=== PATIENT | male | born 1950 | race Caucasian/White ===

== ENCOUNTER 2024-10-31 09:45 | Inpatient (IN) | payer MEDICARE, SELFPAY ==
--- NOTE | ~2024-10-31 | US_ITS ---
CLINICAL HISTORY: LLE swelling erythema Venous duplex ultrasound left lower extremity Comparison: None Findings: The visualized deep veins are fully compressible with normal Doppler color flow and spectral tracings. No popliteal cyst. IMPRESSION: 1. Negative for left lower extremity deep vein thrombosis. This document has been electronically signed by: Audie Knox MD on 10/31/2024 22:24:43
--- NOTE | ~2024-10-31 | XR_ITS ---
EXAMINATION: XR TIBIA FIBULA 2 VIEWS LEFT HISTORY: r/o osteo COMPARISON: There are no prior studies available for comparison. FINDINGS: AP and lateral views of the left tibia and fibula are submitted. Osseous mineralization is normal. There is no fracture or dislocation. The visualized knee and ankle joint spaces are preserved. There is diffuse soft tissue swelling. XR/XR tibia fibula LT 2V IMPRESSION: Diffuse soft tissue swelling. No osseous abnormality is identified. Electronically signed by: Bobby Fontanez MD 10/31/2024 03:53 PM EDT
[2024-10-31 09:58] VITALS: BP 168/82; PULSE 93; RESP 18; TEMP 36.6; O2SAT 96; BMI 52.7
[2024-10-31 11:49] LABS: MANUAL DIFF FLAG NO
[2024-10-31 11:51] LABS: Basophils Percent Auto 0.5 % (0-2); Eosinophils Absolute Auto 0.1 X10*3/uL (0.0-0.4); Eosinophils Percent Auto 1.4 % (0-4); Hematocrit 46.1 % (42.0-52.0); Hemoglobin 15.3 g/dl (14.0-18.0); Imm Gran Abs Auto 0.03 X10*3/uL (0.00-0.03); Imm Gran Pct Auto 0.4 % (0.0-0.4); Lymphocytes Absolute Auto 1.4 X10*3/uL (1.2-4.9); Lymphocytes Percent Auto 18.3 % (20-40); Mean Corpuscular HGB Conc 33.2 g/dl (31.0-36.0); Mean Corpuscular Hemoglobin 29.5 pg (27.0-33.0); Mean Corpuscular Volume 88.8 fL (80.0-98.0); Mean Platelet Volume 9.9 fL (9.4-12.4); Monocytes Absolute Auto 0.6 X10*3/uL (0.1-1.2); Monocytes Percent Auto 8.1 % (2-11); Neutrophils Absolute Auto 5.3 x10*3/uL (2.0-8.3); Neutrophils Percent Auto 71.3 % (45-73); Platelet Count 193 X10*3/uL (160-400); Red Blood Count 5.19 X10*6/uL (4.60-5.80); Red Cell Distribution Width 14.3 % (11.0-16.0); White Blood Count 7.4 X10*3/uL (4.8-10.8)
--- NOTE | 2024-10-31 12:05 | ED.GENADULT ---
HPI - General Adult General Chief complaint: General Medical Stated complaint: l leg swelling red medication not working fell wk Time Seen by Provider: 10/31/24 15:07 Source: patient, RN notes reviewed and old records reviewed Mode of arrival: ambulatory History of Present Illness ED Provider: Merary German PA-C HPI narrative: 74-year-old male with a past medical history prediabetes presenting to the ED complaining of left lower leg erythema, swelling, and wound s/p slip and fall on concrete steps 1 week ago. Denies head trauma/LOC. Admits saw his PCP & was started on Augmentin which he has been taking for 5 days without improvement. Reports increased swelling and weeping noted to leg. Denies fever, chills, SOB Related Data Home Medications ?Medication ?Instructions ?Recorded ?Confirmed clonidine HCl 0.2 mg tablet 0.2 mg PO BID 10/31/24 10/31/24 ezetimibe 10 mg tablet 10 mg PO DAILY 10/31/24 10/31/24 furosemide 40 mg tablet 40 mg PO BID 10/31/24 10/31/24 hydrochlorothiazide 25 mg tablet 25 mg PO DAILY 10/31/24 10/31/24 loratadine 10 mg tablet 10 mg PO DAILY 10/31/24 10/31/24 omega-3 fatty acids-vitamin E 1 cap PO DAILY 10/31/24 10/31/24 1,000 mg capsule omeprazole 20 mg capsule,delayed 20 mg PO DAILY 10/31/24 10/31/24 release potassium chloride 20 mEq 60 meq PO BID 10/31/24 10/31/24 tablet,extended release pravastatin 80 mg tablet 80 mg PO DAILY 10/31/24 10/31/24 psyllium husk 3.4 gram/5.4 gram 1 tsp PO DAILY 10/31/24 10/31/24 oral powder (Metamucil) tamsulosin 0.4 mg capsule 0.8 mg PO DAILY 10/31/24 10/31/24 Allergies Allergy/AdvReac Type Severity Reaction Status Date / Time amlodipine [AMLODIPINE] Allergy Unknown UNKNOWN Verified 10/31/24 10:00 lisinopril [LISINOPRIL] Allergy Unknown UNKNOWN Unverified 03/01/20 15:33 metoprolol [METOPROLOL] Allergy Unknown UNKNOWN Unverified 03/01/20 15:33 spironolactone Allergy Unknown UNKNOWN Unverified 03/01/20 15:33 [SPIRONOLACTONE] Review of Systems Review of Systems: Yes all other systems are reviewed and are negative Constitutional: Constitutional: Reports as per [facility] Past Medical History Attestation statement: The following information was validated with the patient. Source: old records reviewed Medical History (Updated 10/31/24 @ 23:18 by Ryann Balbuena MD) Lower extremity edema Hypertension Mixed hyperlipidemia Obesity BPH (benign prostatic hyperplasia) Gastroesophageal reflux disease Social History Social History Advance Directives: No Advance Directives Information Provided: Yes Physical Exam ED Vital Signs: Vital Signs - 24 hr 10/31/24 09:58 10/31/24 14:53 10/31/24 16:27 Temperature 97.9 F 97.4 F 97.5 F Pulse Rate 93 73 54 Respiratory Rate 18 18 16 Blood Pressure 168/82 H 143/71 H 147/56 H Pulse Oximetry 96 95 97 Oxygen Delivery Method Room Air Room Air Room Air 10/31/24 18:56 10/31/24 20:28 10/31/24 22:28 Temperature 97.8 F 97.2 F Pulse Rate 59 52 57 Respiratory Rate 16 20 18 Blood Pressure 142/63 H 147/46 H 155/59 H Pulse Oximetry 97 97 96 Oxygen Delivery Method Room Air Room Air Room Air BMI result Body Mass Index 52.7 Const General: cooperative, healthy appearing and no acute distress Orientation/consciousness: patient oriented x3 Limitations: no limitations [facility] Head: Yes normal to inspection and Yes atraumatic Ears: hearing grossly normal bilaterally General nose exam: Normal external nose present Face and sinus: Yes normal facial exam Eyes General: appearance normal, both eyes and all related structures EOM: EOMs intact bilaterally Neck Neck: Yes normal visual inspection and Yes no meningeal signs Resp Effort & Inspection: normal respiratory effort and no respiratory distress Cardio Rate: regular rate Skin Rashes: no rashes Neuro General: patient oriented x3, tone normal and no meningeal signs Cranial nerves: Yes CN's II-XII intact bilaterally Gait exam (Neuro): Normal gait present Extrem Other: Please refer to images. Bilateral LE pitting edema. Venous stasis changes noted to RLE LLE is erythema, warmth, and open wound as depicted. + drainage. No fluctuance/induration. Neurovascularly intact distally. No crepitus. Compartments soft Course Course Course Narrative: RME performed by Cassidy Rosen PA-C. Patient is a 74 year old assigned male at presenting to the emergency department with left lower leg redness, swelling, and pain. Patient states he injured his leg on asphalt and was started on ABX 4 days ago but it continues to get worse. Detailed physical exam and review of systems are deferred to the primary teacher. Labs and imaging ordered. Patient placed back in the waiting room pending room availability and results. -1507--no leukocytosis. Labs otherwise reassuring XR tibia fibula LT 2V IMPRESSION: Diffuse soft tissue swelling. No osseous abnormality is identified. -1809--ED care transferred to [facility] pending ultrasound and admission Reevaluation(s) Reevaluation #1: Jocelyn oR NP Venous duplex ultrasound left lower extremity Comparison: None Findings: The visualized deep veins are fully compressible with normal Doppler color flow and spectral tracings. No popliteal cyst. IMPRESSION: 1. Negative for left lower extremity deep vein thrombosis. patient admitted to medicine service, spoke with hospitalist , accepted Medications Administered Generic Name Dose Route Start Last Admin Trade Name Freq PRN Reason Stop Dose Admin Clonidine HCl 0.2 mg 10/31/24 23:15 11/01/24 00:23 Clonidine Hcl 0.2 Mg Tablet PO 0.2 mg BID MARLI Administration Protocol Enoxaparin Sodium 40 mg 10/31/24 22:45 11/01/24 00:21 Enoxaparin Sodium 40 Mg/0.4 Ml Syringe SUBCUT 40 mg Q24H MARLI Administration Furosemide 40 mg 10/31/24 23:15 11/01/24 00:24 Furosemide 40 Mg Tablet PO 40 mg BID MARLI Administration Protocol Sodium Chloride 3 ml 11/01/24 00:00 11/01/24 00:25 0.9 % Sodium Chloride Flush 3 Ml Syringe IVFLUSH 3 ml QSHIFT MARLI Administration Discontinued Medications Generic Name Dose Route Start Last Admin Trade Name Freq PRN Reason Stop Dose Admin Vancomycin HCl 2,000 mg in 500 mls @ 250 mls/hr 10/31/24 15:18 10/31/24 21:28 Vancomycin/Ns IV 10/31/24 17:17 Infused ONCE ONE Infusion Piperacillin Sod/Tazobactam 50 mls @ 100 mls/hr 10/31/24 15:18 10/31/24 16:57 Sod 3.375 gm/ Sodium Chloride IV 10/31/24 15:47 Infused ONCE ONE Infusion Medical Decision Making Medical Decision Making [facility] Narrative: 74-year-old male with a past medical history prediabetes presenting to the ED complaining of left lower leg erythema, swelling, and wound s/p slip and fall on concrete steps 1 week ago. On exam vital signs stable, NAD, nontoxic appearing, physical exam as noted above. Please refer to images. Concern for cellulitis s/p failed outpatient antibiotics vs DVT vs osteomyelitis. Low suspicion for compartment syndrome or severe sepsis at this time Plan: Labs, blood cultures, empiric IV antibiotics, x-ray, ultrasound Please refer to course for remaining clinical decision making, interpretation of labs/imaging results, and discussions with consultants and/or family members. Differential Diagnosis Differential Diagnoses: The differential diagnosis associated with the presentation includes As above Admission/Observation Consideration of admission/observation: Escalation of care including admission/observation considered Consult Healthcare Provider Management of the patient was discussed with: Hospitalist Lab Data [facility] Lab Attestation statement: I reviewed the patient's lab results. 10/31/24 11:33 10/31/24 11:33 Labs: Lab Results 10/31/24 10/31/24 Range/Units 11:33 12:23 WBC 7.4 (4.8-10.8) X10*3/uL RBC 5.19 (4.60-5.80) X10*6/uL Hgb 15.3 (14.0-18.0) g/dl Hct 46.1 (42.0-52.0) % MCV 88.8 (80.0-98.0) fL MCH 29.5 (27.0-33.0) pg MCHC 33.2 (31.0-36.0) g/dl RDW 14.3 (11.0-16.0) % Plt Count 193 (160-400) X10*3/uL MPV 9.9 (9.4-12.4) fL Immature Gran % (Auto) 0.4 (0.0-0.4) % Neut % (Auto) 71.3 (45-73) % Lymph % (Auto) 18.3 L (20-40) % [place] % (Auto) 8.1 (2-11) % Eos % (Auto) 1.4 (0-4) % Baso % (Auto) 0.5 (0-2) % Lymph # (Auto) 1.4 (1.2-4.9) X10*3/uL [place] # (Auto) 0.6 (0.1-1.2) X10*3/uL Eos # (Auto) 0.1 (0.0-0.4) X10*3/uL Baso # (Auto) 0.0 (0.0-0.2) X10*3/uL Abs Immat Gran (auto) 0.03 (0.00-0.03) X10*3/uL Absolute Neuts (auto) 5.3 (2.0-8.3) x10*3/uL Absolute Nucleated RBC 0.000 (0.0-0.012) X10*3/uL Nucleated RBC % (auto) 0.0 (0.0-0.2) /100WBC ESR 13 (0-15) MM/HR Sodium 136 (135-145) mmol/L Potassium 3.7 (3.3-5.1) mmol/L Chloride 99 (96-108) mmol/L Carbon Dioxide 30 H (22-29) mmol/L Anion Gap 11 L (12-20) BUN 12 (9-16) mg/dL Creatinine 0.92 (0.5-1.4) mg/dL Estim Creat Clear Calc 103.3 Estimated GFR > 60 Random Glucose 101 (60-115) mg/dL Lactic Acid 1.2 (0.5-2.0) mmol/L Calcium 9.3 (8.4-10.2) mg/dL Total Bilirubin 0.5 (0.0-1.0) mg/dL AST 20 (5-37) U/L ALT 14 (0-40) U/L Alkaline Phosphatase 89 (39-117) U/L C-Reactive Protein 0.83 H (< or = 0.50) mg/dL B-Natriuretic Peptide 11 (<100) pg/mL Total Protein 6.7 (6.5-8.0) g/dL Albumin 4.0 (3.5-5.0) g/dL Independent Interpretation I performed an independent interpretation of an: Plain X-Ray and Ultrasound Radiology Impression Discussion of test interpretation with radiology: I have reviewed the radiologist's reading. External Record Review External record reviewed: Inpatient record, Office record, Outpatient record, Prior outpatient labs, Prior outpatient radiology, Primary care record and Outside ED record Tests considered The following testing was considered but not selected: As above Prescription Management I considered prescription management with: Pain Medication and Antibiotic Chronic Conditions Patient?s care impacted by: Other Social Determinants Patient?s care significantly limited by Social Determinants of Health including: Other Social Determinant of Health Discharge Plan Discharge Clinical Impression: Cellulitis of left lower leg Patient Disposition: Admitted As Inpatient
[2024-10-31 12:09] LABS: Alanine Aminotransferase 14 U/L (0-40); Alkaline Phosphatase 89 U/L (39-117); Anion Gap 11 (12-20); Aspartate Amino Transferase 20 U/L (5-37); Bilirubin Total 0.5 mg/dL (0.0-1.0); Blood Urea Nitrogen 12 mg/dL (9-16); Calcium 9.3 mg/dL (8.4-10.2); Carbon Dioxide 30 mmol/L (22-29); Chloride 99 mmol/L (96-108); Creatinine Clr Calc Pharmacy 103.3; Estimated Glomerular Filt Rate > 60; Glucose Random 101 mg/dL (60-115); Potassium 3.7 mmol/L (3.3-5.1); Sodium 136 mmol/L (135-145); Total Protein 6.7 g/dL (6.5-8.0)
[2024-10-31 12:12] LABS: B Type Natriuretic Peptide 11 pg/mL (<100)
[2024-10-31 12:39] LABS: C Reactive Protein 0.83 mg/dL (< or = 0.50)
[2024-10-31 12:54] LABS: Lactic Acid 1.2 mmol/L (0.5-2.0)
[2024-10-31 13:12] LABS: Erythrocyte Sedimentation Rate 13 MM/HR (0-15)
[2024-10-31 14:53] VITALS: BP 143/71; PULSE 73; RESP 18; TEMP 36.3; O2SAT 95
--- NOTE | 2024-10-31 16:15 | PC.NURSE ---
20g IV access established to right AC. To be medicated with IV antibiotics and moved from [address] to room 20. IV antibiotics & admission for BLE cellulitis.
[2024-10-31 16:27] VITALS: BP 147/56; PULSE 54; RESP 16; TEMP 36.4; O2SAT 97
[2024-10-31] MEDS: Piperacillin Sodium/Tazobactam 3.375 GM in 0.9 % Sodium Chloride 50 ML IV (16:27)
[2024-10-31] MEDS: vancomycin/NS 2,000 MG/500 ML PLAST..BAG 250 MG IV (17:50)
[2024-10-31 18:56] VITALS: BP 142/63; PULSE 59; RESP 16; TEMP 36.6; O2SAT 97
[2024-10-31 20:28] VITALS: BP 147/46; PULSE 52; RESP 20; TEMP 36.2; O2SAT 97
--- NOTE | 2024-10-31 21:31 | PC.NURSE ---
Medication reconciliation completed with patient & patient provided medication list. Uses [facility] in [facility] [place] Aguilar.
[2024-10-31 22:28] VITALS: BP 155/59; PULSE 57; RESP 18; O2SAT 96
--- NOTE | 2024-10-31 22:35 | PM.IMHP ---
History of Present Illness Date of Service: 10/31/24 Chief Complaint: leg infection This is a 74-year-old male with pertinent history of hypertension, mixed hyperlipidemia, BPH, lower extremity edema, gastroesophageal reflux disease, obesity who presents to the emergency department for concerns of left lower extremity redness and swelling. Patient states that about a week ago he slipped and fell on concrete steps. He has been having nonhealing wound on the left lower extremity since the fall which is associated with progressive redness, swelling and warmth. Patient was seen outpatient by his PCP and started on Augmentin. Patient has been taking p.o. medications for 5 days without any improvement. Also noticed purulent drainage on the day of presentation. No fever, chills, chest pain, palpitations, shortness of breath, abdominal pain, changes in urinary or bowel habits. In the emergency department, patient was given empiric IV antibiotics. Review of Systems Constitutional: Constitutional: Reports no additional constitutional complaints Cardiovascular: Cardiovascular: Reports no additional cardiovascular complaints Respiratory: Respiratory: Reports no additional respiratory complaints Gastrointestinal: Gastrointestinal: Reports no additional gastrointestinal complaints Genitourinary: Genitourinary: Reports no additional male genitourinary complaints [facility] Medical History (Updated 10/31/24 @ 23:18 by Ryann Balbuena MD) Lower extremity edema Hypertension Mixed hyperlipidemia Obesity BPH (benign prostatic hyperplasia) Gastroesophageal reflux disease Pertinent family history: No family history of early CAD Social History Advance Directives: No Advance Directives Information Provided: Yes Meds Allergies Allergy/AdvReac Type Severity Reaction Status Date / Time amlodipine [AMLODIPINE] Allergy Unknown UNKNOWN Verified 10/31/24 10:00 lisinopril [LISINOPRIL] Allergy Unknown UNKNOWN Unverified 03/01/20 15:33 metoprolol [METOPROLOL] Allergy Unknown UNKNOWN Unverified 03/01/20 15:33 spironolactone Allergy Unknown UNKNOWN Unverified 03/01/20 15:33 [SPIRONOLACTONE] Home Medications ?Medication ?Instructions ?Recorded ?Confirmed ?Last Taken ?Type clonidine HCl 0.2 mg tablet 0.2 mg PO BID 10/31/24 10/31/24 10/31/24 History ezetimibe 10 mg tablet 10 mg PO DAILY 10/31/24 10/31/2410/31/25 History furosemide 40 mg tablet 40 mg PO BID 10/31/24 10/31/24 10/30/24 History hydrochlorothiazide 25 mg tablet 25 mg PO DAILY 10/31/24 10/31/24 10/31/24 History loratadine 10 mg tablet 10 mg PO DAILY 10/31/24 10/31/24 10/31/24 History omega-3 fatty acids-vitamin E 1 cap PO DAILY 10/31/24 10/31/24 10/31/24 History 1,000 mg capsule omeprazole 20 mg capsule,delayed 20 mg PO DAILY 10/31/24 10/31/24 10/31/24 History release potassium chloride 20 mEq 60 meq PO BID 10/31/24 10/31/24 10/31/24 History tablet,extended release pravastatin 80 mg tablet 80 mg PO DAILY 10/31/24 10/31/24 10/31/24 History psyllium husk 3.4 gram/5.4 gram 1 tsp PO DAILY 10/31/24 10/31/24 10/31/24 History oral powder (Metamucil) tamsulosin 0.4 mg capsule 0.8 mg PO DAILY 10/31/24 10/31/24 10/30/24 History Physical Exam Vital Signs and Narrative: Vital Signs: Last Vital Signs Temp 97.2 F 10/31/24 20:28 Pulse 57 10/31/24 22:28 Resp 18 10/31/24 22:28 BP 155/59 H 10/31/24 22:28 Pulse Ox 96 10/31/24 22:28 O2 Del Method Room Air 10/31/24 22:28 BMI result Body Mass Index 52.7 Middle-aged male lying in bed in no distress Neck supple, no JVD Regular rate and rhythm, S1-S2 heard Regular breath sounds bilaterally, no wheezing or crackles appreciated Abdomen soft nontender, no guarding, no rigidity Patient is awake, alert and oriented to self, place, time and person ; no focal motor deficit Psych: Normal mood Left lower extremity with erythema, warmth and swelling with nonhealing wounds ; Bilateral lower extremity pedal edema Results Labs 10/31/24 11:33 10/31/24 11:33 Labs: Laboratory Results - last 24 hr 10/31/24 10/31/24 11:33 12:23 MCV 88.8 MCH 29.5 MCHC 33.2 RDW 14.3 Plt Count 193 MPV 9.9 Immature Gran % (Auto) 0.4 Neut % (Auto) 71.3 Lymph % (Auto) 18.3 L [place] % (Auto) 8.1 Eos % (Auto) 1.4 Baso % (Auto) 0.5 Lymph # (Auto) 1.4 [place] # (Auto) 0.6 Eos # (Auto) 0.1 Baso # (Auto) 0.0 Abs Immat Gran (auto) 0.03 Absolute Neuts (auto) 5.3 Absolute Nucleated RBC 0.000 Nucleated RBC % (auto) 0.0 ESR 13 Anion Gap 11 L Estim Creat Clear Calc 103.3 Estimated GFR > 60 Random Glucose 101 Lactic Acid 1.2 Calcium 9.3 Total Bilirubin 0.5 AST 20 ALT 14 Alkaline Phosphatase 89 C-Reactive Protein 0.83 H B-Natriuretic Peptide 11 Total Protein 6.7 Albumin 4.0 Imaging Radiologist's Impressions: Impressions Tibia/Fibula X-Ray 10/31/24 15:18 IMPRESSION: Diffuse soft tissue swelling. No osseous abnormality is identified. Electronically signed by: Bobby Fontanez MD 10/31/2024 03:53 PM EDT RP Assessment and Plan (1) Cellulitis of left lower leg: Status: Acute Plan This is a 74-year-old male with pertinent history of hypertension, mixed hyperlipidemia, BPH, lower extremity edema, gastroesophageal reflux disease, obesity who presents to the emergency department for concerns of left lower extremity redness and swelling. #. Left lower extremity purulent cellulitis: Will admit patient with IV vancomycin. No sepsis. Monitor for improvement. Failed outpatient p.o. antibiotics. Wound care consult. #. Hypertension: Continue home clonidine, hydrochlorothiazide, furosemide #. Mixed hyperlipidemia: On Zetia and statin #. Lower extremity edema: On diuretics #. BPH: On Flomax #. Gastroesophageal reflux disease: On PPI DVT prophylaxis: Lovenox Full code Admit as inpatient and will require two night minimum hospital stay for IV antibiotics (as above), which is not possible in a lesser acute setting. Quality Stroke Does the patient have a stroke diagnosis?: No VTE Prior VTE?: No VTE Risk Level:: Medical - moderate - high VTE Device Contraindication: Treatment Not Indicated VTE Drug Contraindication: N/A - Med Ordered
[2024-11-01] MEDS: Enoxaparin Sodium 40 MG/0.4 ML SYRINGE SUBCUT ×2 (00:21→21:06)
[2024-11-01 00:23] VITALS: BP 155/59
[2024-11-01] MEDS: cloNIDine HCL 0.2 MG TABLET PO ×3 (00:23→21:00)
[2024-11-01 00:24] VITALS: BP 155/59
[2024-11-01] MEDS: Furosemide 40 MG TABLET PO ×3 (00:24→21:00)
[2024-11-01] MEDS: 0.9 % Sodium Chloride Flush 3 ML SYRINGE IVFLUSH ×4 (00:25→23:26)
--- NOTE | 2024-11-01 04:39 | PC.NURSE ---
Pt is intermittently resting/sleeping in bed. Uses the call light for assistance/needs. Is appropriate with staff and staff requests. Ambulates with a steady unassisted and uses the bathroom as desired. Pending admission for IV antibiotics. Will continue to monitor for any changes in condition.
[2024-11-01 05:50] VITALS: BP 140/52; PULSE 57; RESP 18; TEMP 36.6; O2SAT 95
[2024-11-01 06:03] LABS: MANUAL DIFF FLAG NO
--- NOTE | 2024-11-01 06:08 | PC.NURSE ---
Pt transferred to a hospital bed for additional comfort. Pt denies any other needs/wants at this time.
[2024-11-01 06:16] LABS: Anion Gap 11 (12-20); Blood Urea Nitrogen 11 mg/dL (9-16); Calcium 8.6 mg/dL (8.4-10.2); Carbon Dioxide 29 mmol/L (22-29); Chloride 100 mmol/L (96-108); Creatinine Clr Calc Pharmacy 109.3; Estimated Glomerular Filt Rate > 60; Glucose Random 113 mg/dL (60-115); Potassium 3.4 mmol/L (3.3-5.1); Sodium 137 mmol/L (135-145)
[2024-11-01 06:39] LABS: Basophils Absolute Auto 0.1 X10*3/uL (0.0-0.2); Basophils Percent Auto 0.8 % (0-2); Eosinophils Absolute Auto 0.2 X10*3/uL (0.0-0.4); Eosinophils Percent Auto 2.5 % (0-4); Hematocrit 42.9 % (42.0-52.0); Hemoglobin 14.3 g/dl (14.0-18.0); Imm Gran Abs Auto 0.02 X10*3/uL (0.00-0.03); Imm Gran Pct Auto 0.3 % (0.0-0.4); Lymphocytes Absolute Auto 1.3 X10*3/uL (1.2-4.9); Mean Corpuscular HGB Conc 33.3 g/dl (31.0-36.0); Mean Corpuscular Hemoglobin 29.7 pg (27.0-33.0); Mean Corpuscular Volume 89.2 fL (80.0-98.0); Mean Platelet Volume 9.8 fL (9.4-12.4); Monocytes Absolute Auto 0.5 X10*3/uL (0.1-1.2); Monocytes Percent Auto 7.8 % (2-11); Neutrophils Absolute Auto 4.2 x10*3/uL (2.0-8.3); Neutrophils Percent Auto 67.6 % (45-73); Platelet Count 197 X10*3/uL (160-400); Red Blood Count 4.81 X10*6/uL (4.60-5.80); Red Cell Distribution Width 14.5 % (11.0-16.0); White Blood Count 6.3 X10*3/uL (4.8-10.8)
[2024-11-01 07:32] VITALS: BP 136/56; PULSE 54; RESP 20; TEMP 36.4; O2SAT 96
[2024-11-01] MEDS: vancomycin HCL 1,250 MG in 0.9 % Sodium Chloride 250 ML 166.67 MG IV ×2 (08:02→18:38)
[2024-11-01] MEDS: Loratadine 10 MG TABLET PO (08:05)
[2024-11-01] MEDS: Omeprazole 20 MG CAPSULE.DR PO (08:05)
[2024-11-01] MEDS: Ezetimibe 10 MG TABLET PO (08:06)
[2024-11-01] MEDS: Tamsulosin HCL 0.4 MG CAPSULE 0.8 MG PO (08:06)
[2024-11-01] MEDS: hydroCHLOROthiazide 25 MG TABLET PO (08:06)
[2024-11-01] MEDS: Potassium Chloride ER 20 MEQ TAB.ER.PRT 60 MEQ PO ×2 (08:13→21:00)
[2024-11-01] MEDS: Pravastatin Sodium 80 MG TABLET PO (08:21)
--- NOTE | 2024-11-01 08:44 | PHA.MEDREC ---
Addendum entered by Soledad Nicole RPh 11/01/24 11:02: Med rec was reviewed by [facility]. Original Note: Pharmacy Consult ? Medication Reconciliation Pharmacy reviewed med rec done by nursing. Patient verified the medications and I updated that the patient stated he is taking the Metamucil 1 tsp at bedtime;nurse had confirmed 1 tsp po daily. Also the patient confirmed he takes his Tamsulosin 0.4mg tab 2 tab at bedtime; nurse had confirmed 0.8mg tabs daily.
[2024-11-01 09:31] VITALS: BMI 52.8
--- NOTE | 2024-11-01 09:32 | P.PNIM_ITS ---
Subjective Subjective Date of Service: 11/01/24 Interval History: seen and evaluated this morning denies fever or chills LLE swollen, erythema stable no expansion no other events Review of Systems Review of Systems: Yes all other systems are reviewed and are negative Physical Exam 2 Vital Signs: Vital Signs: Last Vital Signs Temp 97.6 F 11/01/24 07:32 Pulse 54 11/01/24 07:32 Resp 20 11/01/24 07:32 BP 136/56 L 11/01/24 07:32 Pulse Ox 96 11/01/24 07:32 O2 Del Method Room Air 11/01/24 07:32 BMI result Body Mass Index 52.7 Const: Other: Constitutional : Awake, interactive, not in distress Neck : Normal inspection, Supple Cardiovascular : RRR, no JVP, +2 lower extremity edema Respiratory : good bilateral air entry, no crackles, wheezes or rhonchi Gastrointestinal: soft, lax, Normal bowel sounds, Non tender Skin : Warm, Dry, Bilateral LE pitting edema. Venous stasis changes noted bilaterally, LLE has erythema, warmth, and mild tenderness with 2 open wound covered with . No fluctuance/induration. Neurovascularly intact distally. No crepitus. Compartments soft Neurological : Alert & oriented x3, No focal deficit , CN 2-12 within normal Objective Data Active Medications Acetaminophen (Acetaminophen 325 Mg Tablet) 650 mg PO Q6H PRN PRN Reason: Pain, Mild 1-3,fever,headache Calcium Carbonate (Calcium Carbonate 750 Mg Tab.Chew) 750 mg PO Q4H PRN PRN Reason: Heartburn Clonidine HCl (Clonidine Hcl 0.2 Mg Tablet) 0.2 mg PO BID [facility]; Protocol Last Admin: 11/01/24 08:05 Dose: 0.2 mg Documented By: WERO Ezetimibe (Ezetimibe 10 Mg Tablet) 10 mg PO DAILY [facility] Last Admin: 11/01/24 08:06 Dose: 10 mg Documented By: WERO Enoxaparin Sodium (Enoxaparin Sodium 40 Mg/0.4 Ml Syringe) 40 mg SUBCUT Q24H [facility] Last Admin: 11/01/24 00:21 Dose: 40 mg Documented By: ESTELLE Furosemide (Furosemide 40 Mg Tablet) 40 mg PO BID [facility]; Protocol Last Admin: 11/01/24 08:05 Dose: 40 mg Documented By: WERO Hydrochlorothiazide (Hydrochlorothiazide 25 Mg Tablet) 25 mg PO DAILY [facility]; Protocol Last Admin: 11/01/24 08:06 Dose: 25 mg Documented By: WERO Vancomycin HCl 1,250 mg/ (Sodium Chloride) 250 mls @ 166.667 mls/hr IV Q12H [facility] Last Admin: 11/01/24 08:02 Dose: 166.67 mls/hr Documented By: WERO Loratadine (Loratadine 10 Mg Tablet) 10 mg PO DAILY [facility] Last Admin: 11/01/24 08:05 Dose: 10 mg Documented By: WERO Magnesium Hydroxide (Milk Of Magnesia 30 Ml Oral.Susp) 30 ml PO DAILY PRN PRN Reason: Constipation Melatonin (Melatonin 3 Mg Tablet) 6 mg PO BEDTIME PRN PRN Reason: Insomnia Omeprazole (Omeprazole 20 Mg Capsule.Dr) 20 mg PO DAILY [facility] Last Admin: 11/01/24 08:05 Dose: 20 mg Documented By: WERO Ondansetron HCl (Ondansetron Hcl 4 Mg/2 Ml Vial) 4 mg IVPUSH Q8H PRN PRN Reason: Nausea and Vomiting Pharmacy Consult (Consult Rx Vancomycin Dosing) 1 each MISCELLANE DAILY PRN PRN Reason: Consult order Potassium Chloride (Potassium Chloride Er 20 Meq Tab.Er.Prt) 60 meq PO BID [facility] Last Admin: 11/01/24 08:13 Dose: 60 meq Documented By: WERO Pravastatin Sodium (Pravastatin Sodium 80 Mg Tablet) 80 mg PO DAILY [facility] Last Admin: 11/01/24 08:21 Dose: 80 mg Documented By: WERO Psyllium Hydrophilic Mucilloid (Psyllium Seed 3.7 Gm Packet) 3.7 gm PO DAILY [facility] Sodium Chloride (0.9 % Sodium Chloride Flush 3 Ml Syringe) 3 ml IVFLUSH QSHIFT [facility] Last Admin: 11/01/24 08:09 Dose: 3 ml Documented By: WERO Tamsulosin HCl (Tamsulosin Hcl 0.4 Mg Capsule) 0.8 mg PO DAILY [facility] Last Admin: 11/01/24 08:06 Dose: 0.8 mg Documented By: WERO Labs 11/01/24 06:00 11/01/24 06:00 Labs: Laboratory Results - last 24 hr 10/31/24 10/31/24 11/01/24 11:33 12:23 06:00 MCV 88.8 89.2 MCH 29.5 29.7 MCHC 33.2 33.3 RDW 14.3 14.5 Plt Count 193 197 MPV 9.9 9.8 Immature Gran % (Auto) 0.4 0.3 Neut % (Auto) 71.3 67.6 Lymph % (Auto) 18.3 L 21.0 [place] % (Auto) 8.1 7.8 Eos % (Auto) 1.4 2.5 Baso % (Auto) 0.5 0.8 Lymph # (Auto) 1.4 1.3 [place] # (Auto) 0.6 0.5 Eos # (Auto) 0.1 0.2 Baso # (Auto) 0.0 0.1 Abs Immat Gran (auto) 0.03 0.02 Absolute Neuts (auto) 5.3 4.2 Absolute Nucleated RBC 0.000 0.000 Nucleated RBC % (auto) 0.0 0.0 ESR 13 Anion Gap 11 L 11 L Estim Creat Clear Calc 103.3 109.3 Estimated GFR > 60 > 60 Random Glucose 101 113 Lactic Acid 1.2 Calcium 9.3 8.6 D Total Bilirubin 0.5 AST 20 ALT 14 Alkaline Phosphatase 89 C-Reactive Protein 0.83 H B-Natriuretic Peptide 11 Total Protein 6.7 Albumin 4.0 Assessment and Plan (1) Lower extremity edema: Status: Acute (2) Cellulitis of left lower leg: Status: Acute Plan This is a 74-year-old male with pertinent history of hypertension, mixed hyperlipidemia, BPH, lower extremity edema, gastroesophageal reflux disease, obesity who presents to the emergency department for concerns of left lower extremity redness and swelling. # Left lower extremity purulent cellulitis Failed OP antibiotics pending cultures Continue IV vancomycin Monitor for improvement Failed outpatient p.o. antibiotics Wound care consult RANJITH Wrap Apply Steroid cream for stasis dermatitis follow Vancomycin trough # Hypertension Continue home clonidine, hydrochlorothiazide, furosemide # Mixed hyperlipidemia On Zetia and statin # Lower extremity edema On diuretics, RANJITH Wrap # BPH On Flomax # Gastroesophageal reflux disease: On PPI DVT prophylaxis: Lovenox Full code Admit as inpatient and will require overnight minimum hospital stay for IV antibiotics (as above), which is not possible in a lesser acute setting. Quality Stroke Does the patient have a stroke diagnosis?: No VTE Prior VTE?: No VTE Risk Level:: Medical - moderate - high VTE Device Contraindication: Treatment Not Indicated VTE Drug Contraindication: N/A - Med Ordered
[2024-11-01] MEDS: Hydrocortisone 1 % Cream 28.35 GM TUBE 1 APPL TOPICAL (11:05)
--- NOTE | 2024-11-01 12:37 | MHC.CM.PN ---
PT LIVES ALONE HE IS INDEPENDENT HIS CAR IS IN THE PARKING LOT DC PLAN HOME NO SERVICES
[2024-11-01 14:43] VITALS: BP 122/39; PULSE 65; RESP 18; TEMP 36.7; O2SAT 95
--- NOTE | 2024-11-01 15:28 | P.CDIM_ITS ---
PROVIDER RESPONSE TEXT: To clarify, the appropriate diagnosis supported by the clinical indicators: Severe or Morbid Obesity QUERY TEXT: PHYSICIAN'S DOCUMENTATION REQUEST Date of Query: 11/01/2024 11:04 AM EDT Patient Name: Prashant Aden Admit Date: 11/01/2024 Dear Harley Gonzales MD, A review of the medical record indicates additional documentation may be needed. Please review below and update the documentation accordingly. Clinical Indicators: Height: 5ft 7in Weight: 152.6 kg BMI: 52.8 Other Clinical Notes Supporting Significance of the BMI: Nursing notes Height and Weight: Extreme obe sity class III If possible, please provide an associated diagnosis related to the abnormal BMI, such as: Severe or Morbid Obesity Obesity Other specified Other (explain) Clinically unable to determine (explain) Thank you, Radha Porter, CCS, CDIS Use of terms such as suspected, likely, concern for, or probable (associated with a specific diagnosi s that is being evaluated, monitored, or treated as if it exists) are acceptable and can be coded in the inpatient se tting, when documented at the time of discharge. Please use your independent medical judgment in providing your response. THIS QUERY IS PART OF THE PERMANENT MEDICAL RECORD
[2024-11-01 20:00] VITALS: BP 138/68; PULSE 73; RESP 20; TEMP 36.6; O2SAT 95
[2024-11-02 03:05] VITALS: BP 133/65; PULSE 56; RESP 18; TEMP 37.1; O2SAT 95
[2024-11-02] MEDS: vancomycin HCL 1,250 MG in 0.9 % Sodium Chloride 250 ML 166.67 MG IV ×2 (06:15→18:31)
[2024-11-02 06:39] LABS: MANUAL DIFF FLAG NO
[2024-11-02 07:01] LABS: Anion Gap 14 (12-20); Blood Urea Nitrogen 13 mg/dL (9-16); Calcium 9.4 mg/dL (8.4-10.2); Carbon Dioxide 29 mmol/L (22-29); Chloride 99 mmol/L (96-108); Creatinine Clr Calc Pharmacy 100.2; Estimated Glomerular Filt Rate > 60; Glucose Random 103 mg/dL (60-115); Potassium 3.6 mmol/L (3.3-5.1); Sodium 138 mmol/L (135-145)
[2024-11-02 07:30] LABS: Basophils Percent Auto 0.6 % (0-2); Eosinophils Absolute Auto 0.2 X10*3/uL (0.0-0.4); Eosinophils Percent Auto 2.9 % (0-4); Hematocrit 45.8 % (42.0-52.0); Imm Gran Abs Auto 0.03 X10*3/uL (0.00-0.03); Imm Gran Pct Auto 0.5 % (0.0-0.4); Lymphocytes Absolute Auto 1.9 X10*3/uL (1.2-4.9); Lymphocytes Percent Auto 28.6 % (20-40); Mean Corpuscular HGB Conc 32.8 g/dl (31.0-36.0); Mean Corpuscular Hemoglobin 29.4 pg (27.0-33.0); Mean Corpuscular Volume 89.8 fL (80.0-98.0); Monocytes Absolute Auto 0.6 X10*3/uL (0.1-1.2); Monocytes Percent Auto 8.7 % (2-11); Neutrophils Absolute Auto 3.8 x10*3/uL (2.0-8.3); Neutrophils Percent Auto 58.7 % (45-73); Platelet Count 201 X10*3/uL (160-400); Red Cell Distribution Width 14.6 % (11.0-16.0); White Blood Count 6.5 X10*3/uL (4.8-10.8)
[2024-11-02 07:48] VITALS: PULSE 54; RESP 16; TEMP 36.7; O2SAT 95
[2024-11-02] MEDS: Ezetimibe 10 MG TABLET PO (08:12)
[2024-11-02] MEDS: hydroCHLOROthiazide 25 MG TABLET PO (08:12)
[2024-11-02] MEDS: Omeprazole 20 MG CAPSULE.DR PO (08:12)
[2024-11-02] MEDS: Furosemide 40 MG TABLET PO ×2 (08:12→19:50)
[2024-11-02] MEDS: Tamsulosin HCL 0.4 MG CAPSULE 0.8 MG PO (08:13)
[2024-11-02] MEDS: Potassium Chloride ER 20 MEQ TAB.ER.PRT 60 MEQ PO ×2 (08:13→19:50)
[2024-11-02] MEDS: cloNIDine HCL 0.2 MG TABLET PO ×2 (08:13→19:50)
[2024-11-02] MEDS: Loratadine 10 MG TABLET PO (08:13)
[2024-11-02] MEDS: Hydrocortisone 1 % Cream 28.35 GM TUBE 1 APPL TOPICAL ×2 (08:14→19:51)
[2024-11-02] MEDS: Psyllium seed 3.7 GM PACKET PO (08:14)
[2024-11-02] MEDS: Pravastatin Sodium 80 MG TABLET PO (08:27)
--- NOTE | 2024-11-02 11:07 | P.PNIM_ITS ---
Subjective Subjective Date of Service: 11/02/24 Interval History: seen and evaluated this morning denies fever or chills LLE swollen, erythema stable no expansion no other events Review of Systems Review of Systems: Yes all other systems are reviewed and are negative Physical Exam 2 Vital Signs: Vital Signs: Last Vital Signs Temp 98.1 F 11/02/24 07:48 Pulse 54 11/02/24 07:48 Resp 16 11/02/24 07:48 BP 133/65 11/02/24 03:05 Pulse Ox 95 11/02/24 07:48 O2 Del Method Room Air 11/02/24 07:48 BMI result Body Mass Index 52.8 Const: Other: Constitutional : Awake, interactive, not in distress Neck : Normal inspection, Supple Cardiovascular : RRR, no JVP, +2 lower extremity edema Respiratory : good bilateral air entry, no crackles, wheezes or rhonchi Gastrointestinal: soft, lax, Normal bowel sounds, Non tender Skin : Warm, Dry, Bilateral LE pitting edema. Venous stasis changes noted bilaterally, LLE has erythema, warmth, and mild tenderness with 2 open wound covered with . No fluctuance/induration. Neurovascularly intact distally. No crepitus. Compartments soft Neurological : Alert & oriented x3, No focal deficit , CN 2-12 within normal Objective Data Active Medications Acetaminophen (Acetaminophen 325 Mg Tablet) 650 mg PO Q6H PRN PRN Reason: Pain, Mild 1-3,fever,headache Calcium Carbonate (Calcium Carbonate 750 Mg Tab.Chew) 750 mg PO Q4H PRN PRN Reason: Heartburn Clonidine HCl (Clonidine Hcl 0.2 Mg Tablet) 0.2 mg PO BID [facility]; Protocol Last Admin: 11/02/24 08:13 Dose: 0.2 mg Documented By: ANA Ezetimibe (Ezetimibe 10 Mg Tablet) 10 mg PO DAILY [facility] Last Admin: 11/02/24 08:12 Dose: 10 mg Documented By: ANA Enoxaparin Sodium (Enoxaparin Sodium 40 Mg/0.4 Ml Syringe) 40 mg SUBCUT Q24H [facility] Last Admin: 11/01/24 21:06 Dose: 40 mg Documented By: MARTÍN Furosemide (Furosemide 40 Mg Tablet) 40 mg PO BID [facility]; Protocol Last Admin: 11/02/24 08:12 Dose: 40 mg Documented By: ANA Hydrochlorothiazide (Hydrochlorothiazide 25 Mg Tablet) 25 mg PO DAILY [facility]; Protocol Last Admin: 11/02/24 08:12 Dose: 25 mg Documented By: ANA Hydrocortisone (Hydrocortisone 1 % Cream 28.35 Gm Tube) 1 appl TOPICAL BID [facility]; Protocol Last Admin: 11/02/24 08:14 Dose: 1 appl Documented By: ANA Vancomycin HCl 1,250 mg/ (Sodium Chloride) 250 mls @ 166.667 mls/hr IV Q12H [facility] Last Infusion: 11/02/24 08:23 Dose: Infused Documented By: ANA Loratadine (Loratadine 10 Mg Tablet) 10 mg PO DAILY [facility] Last Admin: 11/02/24 08:13 Dose: 10 mg Documented By: ANA Magnesium Hydroxide (Milk Of Magnesia 30 Ml Oral.Susp) 30 ml PO DAILY PRN PRN Reason: Constipation Melatonin (Melatonin 3 Mg Tablet) 6 mg PO BEDTIME PRN PRN Reason: Insomnia Omeprazole (Omeprazole 20 Mg Capsule.Dr) 20 mg PO DAILY [facility] Last Admin: 11/02/24 08:12 Dose: 20 mg Documented By: ANA Ondansetron HCl (Ondansetron Hcl 4 Mg/2 Ml Vial) 4 mg IVPUSH Q8H PRN PRN Reason: Nausea and Vomiting Pharmacy Consult (Consult Rx Vancomycin Dosing) 1 each MISCELLANE DAILY PRN PRN Reason: Consult order Potassium Chloride (Potassium Chloride Er 20 Meq Tab.Er.Prt) 60 meq PO BID [facility] Last Admin: 11/02/24 08:13 Dose: 60 meq Documented By: ANA Pravastatin Sodium (Pravastatin Sodium 80 Mg Tablet) 80 mg PO DAILY [facility] Last Admin: 11/02/24 08:27 Dose: 80 mg Documented By: ANA Psyllium Hydrophilic Mucilloid (Psyllium Seed 3.7 Gm Packet) 3.7 gm PO DAILY [facility] Last Admin: 11/02/24 08:14 Dose: 3.7 gm Documented By: ANA Sodium Chloride (0.9 % Sodium Chloride Flush 3 Ml Syringe) 3 ml IVFLUSH QSHIFT [facility] Last Admin: 11/02/24 08:19 Dose: Not Given Documented By: ANA Non-Admin Reason: IV Running Tamsulosin HCl (Tamsulosin Hcl 0.4 Mg Capsule) 0.8 mg PO DAILY [facility] Last Admin: 11/02/24 08:13 Dose: 0.8 mg Documented By: ANA Labs 11/02/24 05:31 11/02/24 05:31 Labs: Laboratory Results - last 24 hr 11/02/24 05:31 MCV 89.8 MCH 29.4 MCHC 32.8 RDW 14.6 Plt Count 201 MPV 10.0 Immature Gran % (Auto) 0.5 H Neut % (Auto) 58.7 Lymph % (Auto) 28.6 [place] % (Auto) 8.7 Eos % (Auto) 2.9 Baso % (Auto) 0.6 Lymph # (Auto) 1.9 [place] # (Auto) 0.6 Eos # (Auto) 0.2 Baso # (Auto) 0.0 Abs Immat Gran (auto) 0.03 Absolute Neuts (auto) 3.8 Absolute Nucleated RBC 0.000 Nucleated RBC % (auto) 0.0 Anion Gap 14 Estim Creat Clear Calc 100.2 Estimated GFR > 60 Random Glucose 103 Calcium 9.4 D Microbiology Microbiology Results: Microbiology 10/31/24 12:23 Blood Culture - Preliminary Blood - Venous No growth after 24 hours. 10/31/24 12:23 Blood Culture - Preliminary Blood - Venous No growth after 24 hours. Assessment and Plan (1) Lower extremity edema: Status: Acute (2) Cellulitis of left lower leg: Status: Acute Plan 74M PMH hypertension, mixed hyperlipidemia, BPH, lower extremity edema, gastroesophageal reflux disease, obesity who presented to the emergency department for concerns of left lower extremity redness and swelling. Left lower extremity purulent cellulitis Failed OP antibiotics pending cultures Continue IV vancomycin Monitor for improvement Failed outpatient p.o. antibiotics Wound care consult RANJITH Wrap Apply Steroid cream for stasis dermatitis follow Vancomycin trough Hypertension Continue home clonidine, hydrochlorothiazide, furosemide Mixed hyperlipidemia On Zetia and statin Lower extremity edema On diuretics, RANJITH Wrap BPH On Flomax Gastroesophageal reflux disease PPI DVT prophylaxis: Lovenox Full code reason for continued hospitalization:iv abx Quality Stroke Does the patient have a stroke diagnosis?: No VTE Prior VTE?: No VTE Risk Level:: Medical - moderate - high VTE Device Contraindication: Treatment Not Indicated VTE Drug Contraindication: N/A - Med Ordered
[2024-11-02 15:03] VITALS: BP 142/71; PULSE 61; RESP 18; TEMP 36.6; O2SAT 96
--- NOTE | 2024-11-02 15:37 | MHC.CM.PN ---
per rounds possible dc today on oral meds plan remains home
[2024-11-02] MEDS: 0.9 % Sodium Chloride Flush 3 ML SYRINGE IVFLUSH ×2 (16:14→23:57)
--- NOTE | 2024-11-02 16:14 | HO.WOUND ---
Wound Consult: Initial 74yr old? admitted to [facility] on 10/31/24 - See progress notes and H&P for detailed history.? Wound consult placed for Left Lower Leg wound.? Patient agreeable to assessment and photo documentation.? Patient reports innjury a few weeks ago with poor healing. Patient agreeable to wound care follow up outpt for healing. Left Lower Leg Etiology: ?Abrasion Measurements: 12cm x 4cm x 0.1cm Wound Bed: dry stable intact black scab vs eschar Drainage / Odor: None Edges: ? irregular and stable dry [place] wound: red pink tissue - swelling noted no moisture noted ? No Induration, Fluctuance or Warmth noted Pain: pain to wound area with ambulation Goals of Treatment: Keep stable and dry and follow up outpt wound clinic. Right Lower Leg - Abrasions stable scabs noted - painted with betadine no other dressing needed at this time. ? Recommendations: 1. Turn and Reposition every 2 hours and as needed for patient comfort.? Use pillows or wedges to support off loading positions. 2. Off Load all bony prominences with use of pillows and heel boots if needed.? Apply Preventative foams where needed. ? 3. Monitor for incontinence and moisture control, use barrier creams when needed for prevention and treatment. 4. Provide adequate and supplemental nutrition.? 5. When applicable maintain blood glucose levels per Providers order. Left Leg - Elevate on pillows. [place] with Betadine apply single layer xeroform cover with dry gauze, wrap and Jerrell wrap. Change every 2-3 days. Recommend follow up out patient Wound Clinic at [address] [place] [id number] and to call for an appointment at time of discharge. [phone].? Re-consult wound care Nurse for wound deterioration or wound changes.
[2024-11-02 17:16] LABS: Vancomycin Random 15.2 mcg/mL (15-20)
[2024-11-02 19:21] VITALS: BP 160/56; PULSE 67; RESP 20; TEMP 36.6; O2SAT 93
[2024-11-02] MEDS: Enoxaparin Sodium 40 MG/0.4 ML SYRINGE SUBCUT (21:59)
[2024-11-03 03:02] VITALS: BP 148/66; PULSE 57; RESP 18; TEMP 36.6; O2SAT 94
[2024-11-03] MEDS: vancomycin HCL 1,250 MG in 0.9 % Sodium Chloride 250 ML 166.67 MG IV (06:22)
[2024-11-03 06:24] LABS: Hematocrit 41.6 % (42.0-52.0); Hemoglobin 13.7 g/dl (14.0-18.0); Mean Corpuscular HGB Conc 32.9 g/dl (31.0-36.0); Mean Corpuscular Hemoglobin 29.3 pg (27.0-33.0); Mean Corpuscular Volume 89.1 fL (80.0-98.0); Mean Platelet Volume 9.8 fL (9.4-12.4); Platelet Count 176 X10*3/uL (160-400); Red Blood Count 4.67 X10*6/uL (4.60-5.80); Red Cell Distribution Width 14.5 % (11.0-16.0); White Blood Count 6.5 X10*3/uL (4.8-10.8)
[2024-11-03 06:41] LABS: Anion Gap 13 (12-20); Blood Urea Nitrogen 12 mg/dL (9-16); Calcium 8.8 mg/dL (8.4-10.2); Carbon Dioxide 29 mmol/L (22-29); Chloride 100 mmol/L (96-108); Creatinine Clr Calc Pharmacy 99.2; Estimated Glomerular Filt Rate > 60; Glucose Random 105 mg/dL (60-115); Potassium 3.7 mmol/L (3.3-5.1); Sodium 138 mmol/L (135-145)
[2024-11-03 07:01] VITALS: BP 147/66; PULSE 52; RESP 14; TEMP 36.6; O2SAT 93
[2024-11-03] MEDS: Pravastatin Sodium 80 MG TABLET PO (08:30)
--- NOTE | 2024-11-03 08:51 | P.DS_ITS ---
DS: Providers Provider Date of Service: 11/03/24 Date of admission: 10/31/24 22:34 Date of discharge: 11/03/24 Primary care physician: Jovanny Oates MD Consults: 11/01/24 09:44 Consult to Wound Care Routine Reason for consultation: left lower leg wound DS: Diagnosis Discharge Diagnosis (1) Lower extremity edema: Status: Acute (2) Cellulitis of left lower leg: Status: Acute DS: Summary Hospital Course Hospital Course: from initial hpi: 74-year-old male with pertinent history of hypertension, mixed hyperlipidemia, BPH, lower extremity edema, gastroesophageal reflux disease, obesity who presents to the emergency department for concerns of left lower extremity redness and swelling. Patient states that about a week ago he slipped and fell on concrete steps. He has been having nonhealing wound on the left lower extremity since the fall which is associated with progressive redness, swelling and warmth. Patient was seen outpatient by his PCP and started on Augmentin. Patient has been taking p.o. medications for 5 days without any improvement. Also noticed purulent drainage on the day of presentation. No fever, chills, chest pain, palpitations, shortness of breath, abdominal pain, changes in urinary or bowel habits. In the emergency department, patient was given empiric IV antibiotics. hospital course: Patient was admitted for left lower extremity purulent cellulitis. He was treated with IV vancomycin and had significant improvement. Was seen by wound care who recommended following up outpatient and continuing local care. On discharge we will continue 5 more days of doxycycline. For hypertension continued on clonidine, hydrochlorothiazide, Lasix. For mixed hyperlipidemia continued on statin and Zetia. For BPH continued on Flomax. For morbid obesity weight loss is recommended. Time Attestation Discharge Coordination Time (in mins): 32 Quality: Safe Use of Opioids Does Pt have an Active Cancer Diagnosis on the Problem List?: No Quality: Stroke Does the patient have a stroke diagnosis?: No Physical Exam Vital Signs: Vital Signs: Last Vital Signs Temp 97.9 F 11/03/24 07:01 Pulse 52 11/03/24 07:01 Resp 14 11/03/24 07:01 BP 147/66 H 11/03/24 07:01 Pulse Ox 93 11/03/24 07:01 O2 Del Method Room Air 11/03/24 07:01 BMI result Body Mass Index 52.8 Bilateral lower extremity edema with chronic skin changes, left lower extremity with large scab, improved erythema and edema DS: Data Data Completed and Pending Labs on day of discharge: Laboratory Results - last 24 hr 11/02/24 11/03/24 16:47 05:30 WBC 6.5 RBC 4.67 Hgb 13.7 L Hct 41.6 L MCV 89.1 MCH 29.3 MCHC 32.9 RDW 14.5 Plt Count 176 MPV 9.8 Absolute Nucleated RBC 0.000 Nucleated RBC % (auto) 0.0 Sodium 138 Potassium 3.7 Chloride 100 Carbon Dioxide 29 Anion Gap 13 BUN 12 Creatinine 0.96 Estim Creat Clear Calc 99.2 Estimated GFR > 60 Random Glucose 105 Calcium 8.8 D Magnesium 2.0 Random Vancomycin 15.2 Preliminary micro results at discharge 10/31/24 12:23 Blood Culture - Preliminary Blood - Venous No growth after 48 hours. 10/31/24 12:23 Blood Culture - Preliminary Blood - Venous No growth after 48 hours. Discharge Plan Discharge Anticipated Discharge Date/Time: 11/03/24 08:49 Patient Disposition: Home, Self-Care Discharge Diagnosis: cellulitis Referrals: Jovanny Oates MD [Primary Care Provider] - 1 Week Ramya Mix MD [Physician] - 1 Week Discharge Medications: New doxycycline hyclate 100 mg capsule 100 mg PO BID Qty: 10 0RF Continued furosemide 40 mg tablet 40 mg PO BID clonidine HCl 0.2 mg tablet 0.2 mg PO BID pravastatin 80 mg tablet 80 mg PO DAILY tamsulosin 0.4 mg capsule 0.8 mg PO BEDTIME omeprazole 20 mg capsule,delayed release(DR/EC) 20 mg PO DAILY@0630 hydrochlorothiazide 25 mg tablet 25 mg PO DAILY loratadine 10 mg Tablet 10 mg PO DAILY ezetimibe 10 mg tablet 10 mg PO DAILY potassium chloride 20 mEq tablet extended release 60 meq PO BID omega-3 fatty acids-vitamin E 1,000 mg Capsule 1 cap PO DAILY Metamucil 3.4 gram/5.4 gram Powder 1 tsp PO BEDTIME Rx Instructions: mix into at least 4 oz water or juice before administering acetaminophen 500 mg Tablet 1,000 mg PO Q6H PRN (Reason: Pain) Discharge Orders: Discharge Order (Routine); Ordered 11/03/24 Ordered By: Valentin Atkinson Diet: Advance to usual diet Activity on Discharge: As tolerated Stand Alone Forms: Patient Portal Discharge page Print Language: [place]i Activity Restrictions/Additional Instructions: Topical Wound Care Recommendations: Left Leg - Elevate on pillows. [place] with Betadine apply single layer xeroform cover with dry gauze, wrap and Jerrell wrap. Change every 2-3 days. Recommend follow up out patient Wound Clinic at [address] [place] [address] and to call for an appointment at time of discharge. [phone].? Care Plan Goals: recovery Health Concerns: cellulitis, venous stasis Plan of Treatment: 5 days doxy, see above Assessment: see above
[2024-11-03] MEDS: 0.9 % Sodium Chloride Flush 3 ML SYRINGE IVFLUSH (08:55)
[2024-11-03] MEDS: Psyllium seed 3.7 GM PACKET PO (08:56)
[2024-11-03] MEDS: Potassium Chloride ER 20 MEQ TAB.ER.PRT 60 MEQ PO (08:56)
[2024-11-03] MEDS: Furosemide 40 MG TABLET PO (08:56)
[2024-11-03] MEDS: Loratadine 10 MG TABLET PO (08:57)
[2024-11-03] MEDS: Omeprazole 20 MG CAPSULE.DR PO (08:57)
[2024-11-03] MEDS: Tamsulosin HCL 0.4 MG CAPSULE 0.8 MG PO (08:57)
[2024-11-03] MEDS: hydroCHLOROthiazide 25 MG TABLET PO (08:57)
[2024-11-03] MEDS: Ezetimibe 10 MG TABLET PO (08:57)
[2024-11-03] MEDS: cloNIDine HCL 0.2 MG TABLET PO (08:58)
[2024-11-03] MEDS: Hydrocortisone 1 % Cream 28.35 GM TUBE 1 APPL TOPICAL (09:08)
--- NOTE | 2024-11-03 09:30 | MHC.CM.PN ---
PT TO DC HOME TODAY VIA SELF TRANSPORT
[2024-11-03 09:49] VITALS: BP 168/72; PULSE 102; RESP 18; TEMP 36.2; O2SAT 94
== END 2024-11-03 10:13 | disposition home or self-care (01) | DRG 603 ==
LOC: HO.ED 15:51 → HO.EDOVER 22:56 → HO.S3 11-01 17:33
PROVIDERS: Physician Assistant Medical; Student in an Organized Health Care Education/Training Program; Admitting Provider Student in an Organized Health Care Education/Training Program; Emergency Provider Emergency Medicine; PCP Internal Medicine; Visit Provider Internal Medicine
DX: L03.116 Cellulitis of left lower limb (principal); Z68.43 Body mass index [BMI] 50.0-59.9, adult; E78.2 Mixed hyperlipidemia; I10 Essential (primary) hypertension; E66.01 Morbid (severe) obesity due to excess calories; Z71.3 Dietary counseling and surveillance; K21.9 Gastro-esophageal reflux disease without esophagitis; N40.0 Benign prostatic hyperplasia without lower urinary tract symptoms; Z79.899 Other long term (current) drug therapy
CPT/HCPCS: 36415; 73590; 80048; 80053; 80202; 83605; 83735; 83880; 85025; 85027; 85652; 86140; 87040; 93971; 99285; J1650; J2543; J3370; J3371

== ENCOUNTER → 2024-10-31 15:18 | Outpatient (BNV) | payer MEDICARE, SELFPAY | PROVIDERS: Emergency Provider Emergency Medicine; PCP Internal Medicine; Visit Provider Radiology Diagnostic Radiology | DX: R22.42 Localized swelling, mass and lump, left lower limb (principal) | CPT/HCPCS: 73590; 93971 ==

== ENCOUNTER → 2024-10-31 22:34 | Outpatient (BNV) | payer MEDICARE, SELFPAY | PROVIDERS: Admitting Provider Student in an Organized Health Care Education/Training Program; Emergency Provider Emergency Medicine; PCP Internal Medicine; Visit Provider Student in an Organized Health Care Education/Training Program | DX: R60.0 Localized edema (principal); L03.116 Cellulitis of left lower limb | CPT/HCPCS: 99222; 99232; 99239 ==

== ENCOUNTER 2024-11-15 07:41 | Outpatient (RCR) | payer MEDICARE, SELFPAY | END 2024-11-15 16:36 | disposition home or self-care (01) | LOC: HO.WCC 07:41 | PROVIDERS: PCP Internal Medicine; Visit Provider Surgery | DX: I87.2 Venous insufficiency (chronic) (peripheral) (principal); I10 Essential (primary) hypertension; E66.89 Other obesity not elsewhere classified; R60.9 Edema, unspecified; Z87.891 Personal history of nicotine dependence | CPT/HCPCS: 99213 ==